=== PATIENT | male | born 1965 | race Caucasian/White ===

== ENCOUNTER 2019-04-23 22:28 | Emergency (ER) | payer MEDICAID ==
[~2019-04-23] VITALS: Ht 160 cm; Wt 65.0 kg
[2019-04-24] MEDS ORDERED: ENALAPRIL 2.5MG/2ML VIAL 2ML IV ONE
[2019-04-24 00:09] LABS: BASOPHILS % 0.3 % (0.0-2.0); EOSINOPHILS % 0.9 % (0.0-5.0); HEMOGLOBIN. 16.4 g/dL (14.0-18.0); LYMPHOCYTES % 15.3 % (20.0-50.0); MEAN CORPUSCULAR HEMOGLOBIN 33.5 pg (28.0-32.0); MEAN CORPUSCULAR VOLUME 97.9 fL (80.0-94.0); MEAN PLATELET VOLUME 8.9 fl (7.4-10.4); MONOCYTES % 7.1 % (2.0-8.0); NEUTROPHILS % 76.4 % (40.0-76.0); PLATELET 340 x1000/uL (130-400); RED BLOOD CELL COUNT 4.91 mill/uL (4.7-6.1); RED CELL DISTRIBUTION WIDTH 13.2 % (11.6-14.6)
[2019-04-24 00:24] LABS: CHLORIDE 101 mEq/L (98-107)
[2019-04-24 00:35] LABS: ETHANOL BLOOD < 10 mg/dL
[2019-04-24 02:38] LABS: *AMPHETAMINES SCREEN URINE PRESUMTIVE POSITIVE (NEGATIVE)
[2019-04-24 02:39] LABS: *BARBITURATES SCREEN URINE NEGATIVE (NEGATIVE); *BENZODIAZEPINES SCREEN URINE NEGATIVE (NEGATIVE); *COCAINE SCREEN URINE NEGATIVE (NEGATIVE); CANNABINOID URINE SCREEN NEGATIVE (NEGATIVE); METHADONE URINE SCREEN NEGATIVE (NEGATIVE); OPIATES URINE SCREEN NEGATIVE (NEGATIVE); PHENCYCLIDINE URINE SCREEN NEGATIVE (NEGATIVE)
[2019-04-24 05:00] VITALS: BP 118/77
== END 2019-04-24 05:39 | disposition home or self-care (01) ==
LOC: ER 22:41
DX: R07.89 Other chest pain (principal); R51 Headache; F14.10 Cocaine abuse, uncomplicated
CPT/HCPCS: 36415; 70450; 71045; 80053; 80305; 80320; 83690; 84484; 85025; 85379; 96374; 99284; J3490; G0480

== ENCOUNTER 2019-10-03 21:23 | Emergency (ER) | payer MEDICAID ==
[~2019-10-03] VITALS: Ht 170.2 cm; Wt 75.0 kg
[2019-10-03] MEDS ORDERED: KETOROLAC 60MG/2ML VIAL IM STA (22:19)
[2019-10-03 23:01] LABS: BASOPHILS % 0.9 % (0.0-2.0); EOSINOPHILS % 2.5 % (0.0-5.0); HEMATOCRIT. 45.7 % (42.0-52.0); HEMOGLOBIN. 15.9 g/dL (14.0-18.0); LYMPHOCYTES % 21.7 % (20.0-50.0); MEAN CORPUSCULAR HEMOGLOBIN 33.9 pg (28.0-32.0); MEAN CORPUSCULAR VOLUME 97.4 fL (80.0-94.0); MEAN PLATELET VOLUME 9.1 fl (7.4-10.4); MONOCYTES % 8.5 % (2.0-8.0); NEUTROPHILS % 66.4 % (40.0-76.0); PLATELET 326 x1000/uL (130-400); RED BLOOD CELL COUNT 4.69 mill/uL (4.7-6.1); RED CELL DISTRIBUTION WIDTH 12.9 % (11.6-14.6)
[2019-10-03 23:03] LABS: CHLORIDE 103 mEq/L (98-107)
[2019-10-04 00:24] VITALS: BP 152/82
== END 2019-10-04 00:24 | disposition home or self-care (01) ==
LOC: ER 21:23
DX: S20.219A Contusion of unspecified front wall of thorax, initial encounter (principal); F14.10 Cocaine abuse, uncomplicated; V49.88XA Car occupant (driver) (passenger) injured in other specified transport accidents, initial encounter; Y93.89 Activity, other specified; Y92.89 Other specified places as the place of occurrence of the external cause; Y99.8 Other external cause status
CPT/HCPCS: 36415; 71045; 80053; 84484; 85025; 93005; 96372; 99284; J1885; Z7610

== ENCOUNTER 2019-11-10 08:16 | Emergency (ER) | payer MEDICAID ==
[~2019-11-10] VITALS: Ht 157.5 cm; Wt 64.0 kg
[2019-11-10 08:31] VITALS: BP 121/77
[2019-11-10] MEDS ORDERED: KETOROLAC 60MG/2ML VIAL IM ONE (08:45)
== END 2019-11-10 08:59 | disposition home or self-care (01) ==
LOC: ER 08:16
DX: M54.5 Low back pain (principal); F14.10 Cocaine abuse, uncomplicated
CPT/HCPCS: 96372; 99283; J1885

== ENCOUNTER 2019-12-30 04:20 | Inpatient (IN) | payer MEDICAID, OTHER ==
[~2019-12-30] VITALS: Ht 157.5 cm; Wt 65.4 kg
[2019-12-30 06:32] LABS: CHLORIDE 103 mEq/L (98-107)
[2019-12-30] MEDS ORDERED: MORPHINE SULFATE 4 MG/ML CPJ (NOT FOR IM USE) IV STA (06:32)
[2019-12-30] MEDS ORDERED: ONDANSETRON HCL 4MG/2ML INJ IV STA (06:32)
[2019-12-30 06:33] LABS: BASOPHILS % 0.9 % (0.0-2.0); EOSINOPHILS % 6.4 % (0.0-5.0); HEMATOCRIT. 45.9 % (42.0-52.0); HEMOGLOBIN. 16.3 g/dL (14.0-18.0); LYMPHOCYTES % 25.1 % (20.0-50.0); MEAN CORPUSCULAR HEMOGLOBIN 34.4 pg (28.0-32.0); MEAN CORPUSCULAR VOLUME 97.3 fL (80.0-94.0); MEAN PLATELET VOLUME 9.4 fl (7.4-10.4); MONOCYTES % 6.1 % (2.0-8.0); NEUTROPHILS % 61.5 % (40.0-76.0); PLATELET 322 x1000/uL (130-400); RED BLOOD CELL COUNT 4.72 mill/uL (4.7-6.1); RED CELL DISTRIBUTION WIDTH 12.7 % (11.6-14.6)
[2019-12-30 06:37] LABS: ETHANOL BLOOD < 10 mg/dL
[2019-12-30] MEDS ORDERED: NITROGLYCERIN OINT 1GM/INCH UDPKT TD ONE (06:45)
[2019-12-30] MEDS ORDERED: ASPIRIN 81MG TABLET PO ONE (06:45)
[2019-12-30] MEDS ORDERED: ZOLPIDEM TARTRATE 5MG TABLET PO PRN ×4 (07:15→21:00)
[2019-12-30] MEDS ORDERED: DOCUSATE SODIUM 100MG CAPSULE PO PRN ×2 (07:15→08:45)
[2019-12-30] MEDS ORDERED: IPRATROPIUM/ALBUTEROL 0.5-3(2.5)MG/3ML NEB NEB PRN ×2 (07:15→08:45)
[2019-12-30] MEDS ORDERED: ONDANSETRON HCL 4MG/2ML INJ IV PRN ×2 (07:15→08:45)
[2019-12-30] MEDS ORDERED: CLONIDINE 0.1MG TABLET PO PRN ×2 (07:15→08:45)
[2019-12-30] MEDS ORDERED: MAGNESIUM/ALUMINUM HYDROXIDE/SIMETHICONE 30ML UDC PO PRN ×2 (07:15→08:45)
[2019-12-30] MEDS ORDERED: NITROGLYCERIN 0.4MG TABLET SL SL PRN ×2 (07:15→08:45)
[2019-12-30] MEDS ORDERED: LORAZEPAM 0.5MG TABLET PO PRN ×2 (07:15→08:45)
[2019-12-30] MEDS ORDERED: ENOXAPARIN 40MG/0.4ML SYR SUBCUT SCH (07:15)
[2019-12-30] MEDS ORDERED: KETOROLAC 15MG/ML VIAL IV PRN ×2 (07:15→08:45)
[2019-12-30] MEDS ORDERED: DEXTROSE 50% WATER 50ML SYRINGE IV PRN ×2 (07:15→08:45)
[2019-12-30] MEDS ORDERED: ACETAMINOPHEN 325MG TABLET PO PRN ×4 (07:15→08:45)
[2019-12-30] MEDS ORDERED: GUAIFENESIN 200MG/10ML SUGAR FREE UDC PO PRN ×2 (07:15→08:45)
[2019-12-30 07:40] LABS: *AMPHETAMINES SCREEN URINE NEGATIVE (NEGATIVE)
[2019-12-30 07:41] LABS: *BARBITURATES SCREEN URINE NEGATIVE (NEGATIVE); *BENZODIAZEPINES SCREEN URINE NEGATIVE (NEGATIVE); *COCAINE SCREEN URINE NEGATIVE (NEGATIVE); METHADONE URINE SCREEN NEGATIVE (NEGATIVE); OPIATES URINE SCREEN NEGATIVE (NEGATIVE)
[2019-12-30 07:42] LABS: CANNABINOID URINE SCREEN NEGATIVE (NEGATIVE); PHENCYCLIDINE URINE SCREEN NEGATIVE (NEGATIVE)
[2019-12-30] MEDS ORDERED: INSULIN LISPRO 100 UNITS/ML SUBCUT SCH (08:20)
[2019-12-30 08:30] VITALS: BP 150/81
[2019-12-30 09:00] VITALS: BP 150/81
[2019-12-30] MEDS ORDERED: METOPROLOL TARTRATE 25MG TABLET PO SCH (09:00)
[2019-12-30] MEDS ORDERED: FAMOTIDINE 20MG TABLET PO SCH (09:00)
[2019-12-30] MEDS ORDERED: ASPIRIN 325MG EC TABLET PO SCH (09:00)
[2019-12-30] MEDS ORDERED: BLOOD SUGAR DIAGNOSTIC STRIP TEST SCH (09:00)
[2019-12-30] MEDS: ASPIRIN 325MG EC TABLET PO SCH ×2 (10:00→10:32)
[2019-12-30] MEDS: BLOOD SUGAR DIAGNOSTIC STRIP TEST SCH ×4 (10:09→21:00)
[2019-12-30] MEDS: ENOXAPARIN 40MG/0.4ML SYR SUBCUT SCH (10:31)
[2019-12-30] MEDS: INSULIN LISPRO 100 UNITS/ML SUBCUT SCH ×4 (10:31→20:57)
[2019-12-30] MEDS: FAMOTIDINE 20MG TABLET PO SCH ×2 (10:32→21:00)
[2019-12-30] MEDS: METOPROLOL TARTRATE 25MG TABLET PO SCH ×2 (10:32→20:59)
[2019-12-30 12:00] VITALS: BP 126/70
[2019-12-30 13:35] LABS: *AMPHETAMINES SCREEN URINE NEGATIVE (NEGATIVE); *BARBITURATES SCREEN URINE NEGATIVE (NEGATIVE); CANNABINOID URINE SCREEN NEGATIVE (NEGATIVE); METHADONE URINE SCREEN NEGATIVE (NEGATIVE); OPIATES URINE SCREEN PRESUMTIVE POSITIVE (NEGATIVE); PHENCYCLIDINE URINE SCREEN NEGATIVE (NEGATIVE)
[2019-12-30 13:37] LABS: *BENZODIAZEPINES SCREEN URINE NEGATIVE (NEGATIVE); *COCAINE SCREEN URINE NEGATIVE (NEGATIVE)
[2019-12-30 16:00] VITALS: BP 140/77
[2019-12-30 20:00] VITALS: BP 149/83
[2019-12-30] MEDS ORDERED: ATORVASTATIN CALCIUM 20MG TABLET PO SCH (21:00)
[2019-12-31] VITALS: BP 130/76
[2019-12-31 04:00] VITALS: BP 124/63
[2019-12-31] MEDS: BLOOD SUGAR DIAGNOSTIC STRIP TEST SCH (06:13)
[2019-12-31] MEDS ORDERED: METF-416 MT (07:00)
[2019-12-31] MEDS ORDERED: ATOR20TA MT (07:00)
[2019-12-31] MEDS ORDERED: METO25TA6 PO (07:00)
[2019-12-31] MEDS ORDERED: ASPI-1158 MT (07:00)
[2019-12-31] MEDS ORDERED: FAMO20TA8 PO (07:00)
[2019-12-31 08:13] VITALS: BP 160/80
[2019-12-31] MEDS: METOPROLOL TARTRATE 25MG TABLET PO SCH (08:33)
[2019-12-31] MEDS: ASPIRIN 325MG EC TABLET PO SCH (08:33)
[2019-12-31] MEDS: FAMOTIDINE 20MG TABLET PO SCH (08:34)
[2019-12-31] MEDS: INSULIN LISPRO 100 UNITS/ML SUBCUT SCH (08:38)
[2019-12-31] MEDS: ENOXAPARIN 40MG/0.4ML SYR SUBCUT SCH (08:39)
[2019-12-31 10:45] LABS: CREATINE KINASE 54 IU/L (39-308)
[2019-12-31 10:48] LABS: CREATINE KINASE MB FRACTION < 1.0 ng/mL (0.5-3.6)
[2019-12-31 11:08] VITALS: BP 120/70
[2019-12-31 12:00] VITALS: BP 131/79
== END 2019-12-31 12:00 | disposition home or self-care (01) | DRG 243 ==
LOC: ER 04:20 → 6WST 06:49 → EDBEDREQ 06:51 → EDBEDREQTM 06:51 → ENRESERV 07:39 → ER 08:30
PROVIDERS: ADMIT Internal Medicine; ATTEND Internal Medicine
DX: K21.9 Gastro-esophageal reflux disease without esophagitis (principal); E11.65 Type 2 diabetes mellitus with hyperglycemia; I10 Essential (primary) hypertension; E78.00 Pure hypercholesterolemia, unspecified
CPT/HCPCS: 36415; 71045; 80053; 80061; 80305; 80320; 82550; 82553; 82962; 83036; 83880; 84484; 85025; 93005; 93970; 99291; J1650; J1815; J2270; J2405; G0480

== ENCOUNTER 2024-01-21 22:26 | Emergency (ER) | payer MEDICAID ==
[~2024-01-21] VITALS: Ht 162.6 cm; Wt 64.0 kg
[~2024-01-21 22:26] MED LIST: ASPI-1406 MT; ATOR20TA MT; BENA-8 PO; FAMO20TA8 PO; METF-416 MT; METO25TA6 PO
[2024-01-21 22:46] VITALS: BP 128/88; PULSE 110; RESP 16; TEMP 98.4; O2SAT 99
== END 2024-01-22 02:32 | disposition left against medical advice (07) ==
LOC: ER 22:26
DX: R50.9 Fever, unspecified (principal); Z53.21 Procedure and treatment not carried out due to patient leaving prior to being seen by health care provider

== ENCOUNTER 2024-04-05 19:06 | Emergency (ER) | payer SELFPAY ==
[~2024-04-05] VITALS: Ht 172.7 cm; Wt 73.0 kg
[2024-04-05 19:16] VITALS: BP 142/76; PULSE 115; RESP 17; TEMP 98.7; O2SAT 99
== END 2024-04-05 20:00 | disposition left against medical advice (07) ==
LOC: ER 19:06
DX: R11.10 Vomiting, unspecified (principal); Z53.21 Procedure and treatment not carried out due to patient leaving prior to being seen by health care provider
CPT/HCPCS: 73080; 73090; 93005